=== PATIENT | female | born 1995 | race African-American/Black ===

== ENCOUNTER 2016-10-22 18:37 | Emergency (ER) | payer OTHER ==
[~2016-10-22] VITALS: Ht 165.1 cm; Wt 65.9 kg
[2016-10-22 18:46] VITALS: BP 136/87; PULSE 66; RESP 18; O2SAT 100
[2016-10-22 19:24] LABS: BASOPHILS % (AUTO) 0.3 % (0-3); EOSINOPHILS % (AUTO) 1.8 % (0-5); MONOCYTES % (AUTO) 9.6 % (4-12); Mean Corpuscular Hemoglobin 24.2 pg (27.0-35.0); Mean Corpuscular Volume 75.3 fL (81-100); NEUTROPHILS % (AUTO) 54.8 % (40-74); Platelet Count 182 bil/L (150-400)
[2016-10-22 19:58] LABS: Lipase 33 U/L (13-60); Magnesium 1.9 mg/dL (1.6-2.6)
[2016-10-22 20:10] LABS: APPEARANCE,URINE CLEAR (CLEAR,HAZY); COLOR,URINE YELLOW (YELLOW); PH,URINE 5.5 (5.0-8.0)
[2016-10-22 20:11] LABS: OCCULT BLOOD,URINE NEGATIVE (NEGATIVE); UROBILINOGEN,URINE NORMAL (NORMAL)
--- NOTE | 2016-10-22 20:15 | ED.REPORT ---
HPI-Abd Pain F Under 40 Date of Service Oct 22, 2016 ED Provider: Sandro Juárez DO Pt is a 5 week 22 year old female with a history of appendectomy who presents to the ED complaining of severe intermittent left-sided abdominal pain onset 3 weeks ago. She c/o associated nausea, vomiting, and intermittent diarrhea. She denies any other symptoms and reports that she is currently asymptomatic. Pt reports that her mother had a history of kidney stones. Nursing Notes Stated Complaint: , BAD CRAMPS ON R SIDE, DIZZY, NO BLEEDING Chief Complaint: Female Abdominal Pain Nursing Notes Reviewed: Yes Allergies: Coded Allergies: No Known Allergies (Unverified , 10/22/16) General Time Seen by MD: 20:15 Chief Complaint Abdominal pain Hx Obtained From: Patient Arrived By: Walk-in Sudden in Onset?: No Onset Occurred: More than a week ago... (2 weeks) Symptom Duration: Intermittent Location: : RLQ: RUQ Quality: Cramping, Painful Radiation: : Does not radiate Severity: Current: No pain currently Severity: Maximum: Severe Recent Healthcare: No recent doctor visit, No recent hospitalization Similar Sx Previous: No Past Medical History Past Medical History 5 week Past Surgical History Reports: Appendectomy, Inguinal hernia repair Family History Mother - kidney stones Smoking History Unknown if Ever Smoker Social History Alcohol Use: Denies alcohol use Drug Use: Denies drug use Other Social History: Good social support Ambulatory Status Independent Review of Systems Constitutional: Denies: Fever Respiratory: Denies: Non-productive cough, Shortness of breath GI: Reports: Abdominal pain, Diarrhea (intermittent), Nausea, Vomiting Complete sys rev & neg: except as marked. Physical Exam Initial Vital Signs Vital Signs (First) Date Time Temp Pulse Resp B/P Pulse Ox O2 Delivery O2 Flow Rate FiO2 10/22/16 18:46 37.3 66 18 136/87 100 Room Air Initial VS: Reviewed Head / Eyes: Atraumatic, Normocephalic Neck: Supple, Full range of motion Extremities: Vascular intact, Neuro intact Skin: Warm, Dry, No cyanosis Neurologic: Alert, Oriented, Nonfocal Psychiatric: Mood/affect normal, Behavior normal General/Constitutional: Awake, Alert Respiratory / Chest: Atraumatic, Breath sounds NL, Breath sounds = bilat Cardiovascular: Heart rate NL, Regular rhythm, Heart sounds NL Abdomen: Atraumatic, Soft, Non-tender Back: Atraumatic, Inspection NL, Full range of motion Interpretation & Diagnostics PELVIC/TRANSVAGINAL US: IMPRESSION: 1. Early intrauterine with ultrasound estimated age of 5 weeks 5 days corresponding to ultrasound OZZIE of 06/19/2017. 2. Possible left corpus luteal cyst. Dictated by: Wendy Mcgraw MD, PhD on 10/22/2016 at 21:47 Lab Results Interpretation Result Diagram: 10/22/16 1916 10/22/16 1916 Test 10/22/16 19:09 10/22/16 19:16 10/22/16 19:28 Hold Urine Received (Received) White Blood Count 6.0th/mm3 (3.8-10.1) Red Blood Count 4.58mil/mm3 (3.90-5.20) Hemoglobin 11.1g/dL (12.0-15.6) Hematocrit 34.5% (35.0-46.0) Mean Corpuscular Volume 75.3fL (81-100) Mean Corpuscular Hemoglobin 24.2pg (27.0-35.0) Mean Corpuscular Hemoglobin Concent 32.2% (32.0-37.0) Red Cell Distribution Width 16.8% (12.3-15.4) Platelet Count 182bil/L (150-400) Neutrophils (%) (Auto) 54.8% (40-74) Lymphocytes (%) (Auto) 33.3% (14-46) Monocytes (%) (Auto) 9.6% (4-12) Eosinophils (%) (Auto) 1.8% (0-5) Basophils (%) (Auto) 0.3% (0-3) Sodium Level 137mEq/L (134-144) Potassium Level 3.9mEq/L (3.5-5.2) Chloride Level 103mEq/L (97-108) Carbon Dioxide Level 21mmol/L (18-29) Blood Urea Nitrogen 10mg/dL (6-20) Creatinine 0.62mg/dL (0.57-1.00) Estimat Glomerular Filtration Rate 155mL/min (>59) Glucose Level 99mg/dL (60-99) Calcium Level 9.5mg/dL (8.5-10.1) Magnesium Level 1.9mg/dL (1.6-2.6) Total Bilirubin 0.4mg/dL (0.0-1.2) Aspartate Amino Transf (AST/SGOT) 17U/L (0-50) Alanine Aminotransferase (ALT/SGPT) 8U/L (0-32) Alkaline Phosphatase 79U/L (25-150) Total Protein 7.2g/dL (6.4-8.4) Albumin 4.4g/dL (3.4-5.0) Lipase 33U/L (13-60) Human Chorionic Gonadotropin, Qual Positive (Negative) HCG Beta Subunit 9096mIU/mL Urine Color Yellow (YELLOW) Urine Appearance Clear (CLEAR,HAZY) Urine pH 5.5 (5.0-8.0) Urine Specific [place] 1.025 (1.003-1.035) Urine Protein Negativemg/dL (NEG,TRACE) Urine Glucose (UA) Negativemg/dL (NEGATIVE) Urine Ketones Tracemg/dL (NEGATIVE) Urine Occult Blood Negative (NEGATIVE) Urine Nitrite Negative (NEGATIVE) Urine Bilirubin Negative (NEGATIVE) Urine Urobilinogen Normalmg/dL (NORMAL) Urine Leukocyte Esterase Negative (NEGATIVE) Urine RBC 0-2/hpf (0-2) Urine WBC 0-5/hpf (0-5) Urine Epithelial Cells Few/hpf (NONE-MOD) Urine Crystals None seen (NONE SEEN) Urine Bacteria Few/hpf (NONE-FEW) Urine Hyaline Casts None/lpf (NONE) Urine Granular Casts None seen (NONE SEEN) Urine Waxy Casts None seen (NONE SEEN) Urine Red Blood Cell Casts None seen (NONE SEEN) Urine White Blood Cell Casts None seen (NONE SEEN) Urine Mucus None seen (None Seen) Urine Trichomonas None seen (NONE SEEN) Urine Yeast None (NONE SEEN) Urinalysis Comment None Urine Culture Reflexed Not indicated Re-Eval/Medical Decision Med Decision/Clinical Course Very benign physical examination. No signs of acute abdomen. No peritonitis. Laboratory work reassuring. confirmed. Intrauterine identified on ultrasound. No signs were ruptured ectopic. Left corpus luteal cyst. No free fluid. After observation the pain resolved. She looked good and felt ready to be discharged home. We will have close outpatient follow-up. Source of Hx: Old records Re-Evaluation/Progress : Time of Eval: 21:45 Re-Evaluation/Progress Note: Pt rechecked. Informed pt of plan for discharge. Pt understands and agrees with plan for discharge. F/U instructions and RTER warnings given. All questions addressed. Counseled Regarding: Diagnosis, Lab results, Need for follow-up, When/why to return to ED Discharge & Departure Primary Impression: Abdominal pain during Trimester: first trimester Qualified Code: O26.891 - Other specified related conditions, first trimester Additional Impression: Weeks of gestation: less than 8 weeks Qualified Code: Z3A.01 - Less than 8 weeks gestation of Disposition: Home Discharge Condition All VS Reviewed: Yes Condition: Stable Patient Instructions: Abdominal Pain in (ED), (ED) Additional Instructions: The Ultrasound results indicate that you an approximate 5-week intrauterine . No signs of ectopic . You do have left-sided corpus luteum. This may be a cause of your pain. Your labs are reassuring. Take Tylenol as directed for the pain. Take vitamins with folic acid. Keep your OB follow up. Return to the Emergency Department for bleeding, increasing pain, urinary symptoms, or any new or worrisome symptoms. Referrals: [facility] (PCP) Melissaibe Attestation Portions of this note were transcribed by Fariba Caal. I, Dr. Juárez personally performed the history, physical exam and medical decision-making; I reviewed and confirmed the accuracy of the information in the transcribed note. Signed by : Kelly Saldaña, 10/22/16. copies to: [facility] Sandro Jose DO Oct 22, 2016 20:15 Fariba Navas Oct 22, 2016 20:34
[2016-10-22] MEDS ORDERED: 0.9% Sodium Chloride 1,000 ML IV ONE (20:20)
[2016-10-22 21:50] VITALS: BP 132/84; PULSE 71; RESP 18; O2SAT 100
--- NOTE | 2016-10-22 21:51 | DRSVH ---
PROCEDURE: US OB<14 WKS+OB TRANSVAG INDICATIONS: , pain, LLQ OUTSIDE/PRIOR DATING DATA: Last menstrual period (LMP): Not known. LMP-based estimated date of delivery (OZZIE): Not applicable. First dating scan (date and location): 10/22/2016. Estimated date of delivery (OZZIE) from first dating scan: 06/19/2017. TECHNIQUE: Real-time scanning was performed of the fetus and maternal pelvic organs, with image documentation. Endovaginal scanning was also performed to better visualize the fetus and maternal ovaries. COMPARISON: None. FINDINGS: Embryo: Intrauterine with yolk sac and pole identified. Admire-rump length measures 8.7 cm corresponding to ultrasound estimated gestational age of 5 weeks 5 days. Measurement variability in dating: +/- 4 weeks by LMP, +/- 7 days by mean sac diameter (use before 6 weeks gestation if crown-rump length not able to be measured), +/- 5 days by crown-rump length (up t o 8 weeks 6 days gestation), +/- 7 days by crown-rump length (up to 13 weeks 6 days gestation). Maternal organs: Right adnexa not identified. Thick walled cysts with internal vascularity noted in the left adnexa measures 2.4 cm in diameter may represent a corpus luteal cyst. Limited images thro ugh the kidneys demonstrate no hydronephrosis. IMPRESSION: 1. Early intrauterine with ultrasound estimated age of 5 weeks 5 days corresponding to [facility] OZZIE of 06/19/2017. 2. Possible left corpus luteal cyst. Dictated by: Wendy Mcgraw MD, PhD on 10/22/2016 at 21:47 Approved by: Wendy Mcgraw MD, PhD on 10/22/2016 at 21:49
[2016-10-22 22:22] VITALS: BP 131/79; PULSE 78; RESP 14; O2SAT 100
== END 2016-10-22 22:22 | disposition home or self-care (01) ==
LOC: SED 18:37
DX: O26.891 Other specified pregnancy related conditions, first trimester (principal); R10.9 Unspecified abdominal pain; Z3A.01 Less than 8 weeks gestation of pregnancy; Z90.89 Acquired absence of other organs
CPT/HCPCS: 36415; 76801; 76817; 80053; 81000; 81025; 83690; 83735; 84702; 84703; 85025; 96360; 99284; J7030